=== PATIENT | male | born 2000 | race Caucasian/White ===

== ENCOUNTER 2024-07-12 16:14 | Outpatient (RCR) | payer BC, OTHER, SELFPAY | END 2024-07-12 23:59 | disposition home or self-care (01) | LOC: PT 16:14 | PROVIDERS: Visit Provider Psychiatry & Neurology Neurology | DX: R53.1 Weakness (principal); D49.6 Neoplasm of unspecified behavior of brain | CPT/HCPCS: 97163 ==